=== PATIENT | female | born 1980 | race American Indian/Alaskan Native ===

== ENCOUNTER 2022-08-06 19:26 | Emergency (ER) | payer MEDICAID ==
[~2022-08-06] VITALS: Ht 167.6 cm; Wt 102.5 kg
[2022-08-06 21:53] LABS: CLARITY URINE CLEAR (CLEAR); COLOR URINE YELLOW (YELLOW); KETONES URINE NEGATIVE (NEGATIVE); LEUKOCYTE ESTERASE URINE 2+ (NEGATIVE); NITRITE URINE NEGATIVE (NEGATIVE); OCCULT BLOOD URINE NEGATIVE (NEGATIVE); PROTEIN URINE NEGATIVE (NEGATIVE); SPECIFIC GRAVITY URINE 1.013 (1.005-1.030)
[2022-08-06] MEDS ORDERED: SULF1TAB48 MT (22:42)
[2022-08-06] MEDS ORDERED: SULFAMETHOXAZOLE/TRIMETHOPRIM 800/160MG TABLET PO ONE (23:00)
[2022-08-06 23:23] VITALS: BP 121/38
== END 2022-08-06 23:24 | disposition home or self-care (01) ==
LOC: ER 19:26
DX: R30.0 Dysuria (principal); R21 Rash and other nonspecific skin eruption; Z98.890 Other specified postprocedural states; Z88.0 Allergy status to penicillin
CPT/HCPCS: 81003; 81025; 99283

== ENCOUNTER 2024-09-17 02:16 | Emergency (ER) | payer MEDICAID ==
[~2024-09-17] VITALS: Ht 167.6 cm; Wt 100.0 kg
[~2024-09-17 02:16] MED LIST: SULF1TAB48 MT
[2024-09-17 02:31] VITALS: O2SAT 99
[2024-09-17] MEDS ORDERED: TRAM50TA3 MT (02:37)
[2024-09-17] MEDS ORDERED: TRAMADOL 50MG TABLET PO NR (02:45)
[2024-09-17 02:50] VITALS: TEMP 36.66960; O2SAT 99
[2024-09-17 02:59] VITALS: BP 115/72; PULSE 71; RESP 16
[2024-09-17] MEDS: TRAMADOL 50MG TABLET PO ONE (02:59)
== END 2024-09-17 02:52 | disposition home or self-care (01) ==
LOC: ER 02:28
DX: K08.89 Other specified disorders of teeth and supporting structures (principal); Z98.84 Bariatric surgery status; Z88.0 Allergy status to penicillin
CPT/HCPCS: 99283

== ENCOUNTER 2024-09-20 09:10 | Emergency (ER) | payer MEDICAID ==
[~2024-09-20] VITALS: Ht 167.6 cm; Wt 100.0 kg
[~2024-09-20 09:10] MED LIST changes: +TRAM50TA3 MT
[2024-09-20 09:18] VITALS: O2SAT 98
[2024-09-20] MEDS ORDERED: SULF1TAB48 MT (09:54)
[2024-09-20] MEDS: HYDROCODONE/ACETAMINOPHEN 5/325MG TABLET PO ONE (10:07)
[2024-09-20 10:08] VITALS: BP 117/68; PULSE 58; RESP 16; TEMP 36.83628; O2SAT 98
== END 2024-09-20 10:08 | disposition home or self-care (01) ==
LOC: ER 09:10
DX: K08.89 Other specified disorders of teeth and supporting structures (principal); Z88.0 Allergy status to penicillin
CPT/HCPCS: 99283

== ENCOUNTER 2025-03-01 23:52 | Emergency (ER) | payer MEDICAID ==
[~2025-03-01] VITALS: Ht 160 cm; Wt 106.0 kg
[2025-03-01 23:53] VITALS: O2SAT 99
[2025-03-02] MEDS ORDERED: ONDANSETRON HCL 4MG/2ML INJ IV STA (00:02)
[2025-03-02] MEDS ORDERED: PANTOPRAZOLE SODIUM 40 MG/VIAL IV STA (00:02)
[2025-03-02] MEDS ORDERED: SODIUM CHLORIDE 0.9% 1,000 ML IV ONE (00:15)
[2025-03-02 00:22] LABS: EOSINOPHILS % 4.8 % (0.0-5.0); HEMATOCRIT. 34.6 % (36.0-48.0); LYMPHOCYTES % 28.5 % (20.0-50.0); MEAN CORPUSCULAR HEMOGLOBIN 26.9 pg (28.0-32.0); MEAN CORPUSCULAR HGB CONC 31.9 g/dL (31.0-37.0); MEAN CORPUSCULAR VOLUME 84.4 fL (81.0-99.0); MEAN PLATELET VOLUME 9.2 fl (7.4-10.4); MONOCYTES % 6.3 % (2.0-8.0); NEUTROPHILS % 59.4 % (40.0-76.0); PLATELET 351 x1000/uL (130-400); RED CELL DISTRIBUTION WIDTH 16.5 % (11.6-14.6); WHITE BLOOD COUNT 7.8 x1000/uL (4.5-11.0)
[2025-03-02 00:28] LABS: CHLORIDE 108 mEq/L (98-107); POTASSIUM 3.5 mEq/L (3.5-5.1); SODIUM 141 mEq/L (136-145)
[2025-03-02 00:29] LABS: CARBON DIOXIDE 24 mEq/L (21-32)
[2025-03-02 00:30] LABS: CALCIUM 9.3 mg/dL (8.7-10.4)
[2025-03-02 00:34] LABS: CREATININE 1.1 mg/dL (0.6-1.0); GLUCOSE 111 mg/dL (70-105); UREA NITROGEN BLOOD 19 mg/dL (9-23)
[2025-03-02 00:36] VITALS: BP 114/54; PULSE 59; RESP 16; TEMP 36.7; O2SAT 97
[2025-03-02 00:36] LABS: ALANINE AMINOTRANSFERASE 12 IU/L (10-49); ALBUMIN 4.1 g/dL (3.2-4.8); ASPARTATE AMINOTRANSFERASE 18 IU/L (<34)
[2025-03-02 00:37] LABS: BILIRUBIN DIRECT < 0.1 mg/dL (<=3.0); BILIRUBIN TOTAL 0.3 mg/dL (0.1-1.0); PROTEIN TOTAL 6.3 g/dL (6.0-8.3)
[2025-03-02] MEDS: ONDANSETRON 4MG ODT PO ONE (00:54)
== END 2025-03-02 00:50 | disposition home or self-care (01) ==
LOC: ER 23:52
DX: R42 Dizziness and giddiness (principal); R11.0 Nausea; T49.8X5A Adverse effect of other topical agents, initial encounter; T49.0X5A Adverse effect of local antifungal, anti-infective and anti-inflammatory drugs, initial encounter; F31.9 Bipolar disorder, unspecified; M19.90 Unspecified osteoarthritis, unspecified site; Z98.84 Bariatric surgery status; Z88.0 Allergy status to penicillin; Y92.89 Other specified places as the place of occurrence of the external cause
CPT/HCPCS: 99284; 80076; 80048; 85025; 36415; 93005; Q0162; J7030